=== PATIENT | male | born 1980 | race Caucasian/White ===

== ENCOUNTER → 2020-10-25 | Outpatient (CLI) | payer OTHER ==
--- NOTE | 2020-10-25 08:16 | US ---
EXAMINATION TYPE: US gallbladder DATE OF EXAM: 10/25/2020 COMPARISON: NONE CLINICAL HISTORY: K80.01 Acute cholecystitis. RUQ pain that radiates to side and back EXAM MEASUREMENTS: Liver Length: 20.6 cm Gallbladder Wall: 0.2 cm Right Kidney: 10.5 x 4.6 x 4.4 cm Pancreas: Echogenic in appearance. Tail obscured by overlying bowel gas Liver: Enlarged in size. Echogenic and coarse. Gallbladder: wnl Evidence for sonographic Randall's sign: neg CBD: Obscured by overlying bowel gas Right Kidney: No hydronephrosis or masses seen IMPRESSION: Gallbladder is within normal limits. Prominent size of the liver without intrahepatic stephan t dilatation or common bile duct dilatation.
== END | disposition home or self-care (01) ==
LOC: RADUSWWP 07:46
PROVIDERS: ATTEND Family Medicine
DX: K81.0 Acute cholecystitis (principal)
CPT/HCPCS: 76705